=== PATIENT | male | born 1965 | race Caucasian/White ===

== ENCOUNTER 2017-01-29 15:20 | Emergency (ER) | payer MEDICARE, OTHER ==
[~2017-01-29] VITALS: Ht 177.8 cm; Wt 86.2 kg
[~2017-01-29 15:20] MED LIST: BUPR8TAB SL; DIAZ5TAB PO; HYDR-971 PO; LEXAPRO20 MG PO; LISI-334 PO
[2017-01-29 16:09] LABS: BASO # 0.1 x10^3/uL (0.0-0.2); BASO % 1 % (0-3); EOS % 1 % (0-3); HEMATOCRIT 44.5 % (39.0-53.0); HEMOGLOBIN 14.9 g/dL (13.0-17.5); LYMPH % 19 % (24-48); MEAN CORPUSCULAR HEMOGLOBIN 32 pg (25-35); MEAN CORPUSCULAR HGB CONC 34 g/dL (31-37); MEAN CORPUSCULAR VOLUME 94 fL (79-100); MONO % 6 % (0-9); NEUT % 73 % (31-73); PLATELET COUNT 216 x10^3/uL (140-400); RED BLOOD COUNT 4.73 x10^6/uL (4.30-5.70); RED CELL DISTRIBUTION WIDTH 13.4 % (11.5-14.5); WHITE BLOOD COUNT 10.3 x10^3/uL (4.0-11.0)
[2017-01-29] MEDS ORDERED: IPRATRPIUM/ALBUTEROL 0.5/2.5MG 3 ML NEBU. NEB ONE (16:15)
[2017-01-29] MEDS ORDERED: methylPREDNISolone SOD SUCC PF 125 MG/2 ML VIAL. IV ONE (16:15)
[2017-01-29] MEDS ORDERED: ALBUTEROL SULFATE 2.5 MG/3 ML NEBU. NEB ONE ×2 (16:15)
--- NOTE | 2017-01-29 16:16 | RAD ---
Chest radiograph 01/29/2017 at 1604 hours Indication: Dyspnea for 2 days. Comparison: Chest radiograph 07/23/2014. Technique: PA and lateral views of the chest are provided. Findings: Cardiomediastinal silhouette is within normal limits. No pleural effusions, pulmonary vascular congestion or pneumothorax. Few scattered calcified granulomas are noted in the right upper lobe, left upper lobe and left lung base, stable dating back to 07/23/2014. No suspicious nodular opacities are identified. The lungs are clear. Osseous structures are normal. Impression: No acute cardiopulmonary process.
[2017-01-29 16:18] LABS: PROTHROMBIN TIME PATIENT 12.7 SEC (11.7-14.0)
--- NOTE | 2017-01-29 16:26 | EKG ---
[facility] [address] [place] [address] Test Date: 2017-01-29 Test Time: 15:38:44 Pat Name: JACKIE HAYWOOD Department: Room: Gender: M Vamp Creaser: : 1965 Requested By: ELIZABETH MCKINNEY Order Number: [id number] Reading MD: Bev Silva Measurements Intervals [place] Rate: 70 P: 54 WA: 164 QRS: 64 QRSD: 90 T: 71 QT: 368 QTc: 400 Interpretive Statements SINUS RHYTHM NORMAL EKG Electronically Signed On 01-31-2017 16:08:48 CDT by Bev Silva
[2017-01-29 16:30] LABS: CALCIUM 8.6 mg/dL (8.5-10.1); CREATININE 0.7 mg/dL (0.7-1.3); GFR 117.5; POTASSIUM 3.9 mmol/L (3.5-5.1)
[2017-01-29 16:36] LABS: ALBUMIN 2.9 g/dL (3.4-5.0); ALBUMIN/GLOBULIN RATIO 0.8 (1.0-1.7); TOTAL BILIRUBIN 0.3 mg/dL (0.2-1.0); TOTAL PROTEIN 6.7 g/dL (6.4-8.2)
[2017-01-29] MEDS ORDERED: diphenhydrAMINE 50 MG/ML VIAL IVP ONE (17:15)
[2017-01-29] MEDS ORDERED: VENTOLIN HFA18 GM INH (17:45)
[2017-01-29] MEDS ORDERED: PRED50TA PO (17:45)
--- NOTE | 2017-01-29 17:45 | PHYS DOC ---
Past Medical History Past Medical History: COPD, Other Additional Past Medical Histor: "silicus"-from working with cement Past Surgical History: Cholecystectomy, Other Additional Past Surgical Histo: Rt.leg "shattered" in 08/26,hernia Alcohol Use: Occasionally Drug Use: None, Other Adult General Chief Complaint Chief Complaint: SHORTNESS OF BREATH HPI HPI Patient is a 52 year old 52-year-old gentleman who presents here today complaining of shortness of breath for 3 days. Patient does have a history for COPD. Patient denies any history of hypertension diabetes liver longer kidney problems otherwise. Patient has any cancer coronary disease strokes. Patient reports she's had a cholecystectomy and inguinal hernia repair in the past. Patient has no known drug allergies. Patient is not on any home O2. Patient reports she still smokes drinks occasionally but no drugs. Patient reports she' s had no history of DVT or PE in the past. Patient reports his last admission for lung problems approximately 2 years ago. Patient reports uses inhalers at home however he does not have a primary care physician so he ran out of inhalers quite a while ago. Patient reports that he used his sister's inhalers with some improvement. Patient has no PCP here in town. Patient has any fevers shakes chills nausea vomiting or diarrhea. Patient has any abdominal pain or chest pain. Patient reports she's had a clear productive cough which is new for him. Patient's physical exam is significant for diffuse inspiratory and expiratory wheezing. Patient does not appear to be in any acute respiratory distress at this time. Review of systems: Constitutional: Denies fever or chills Eyes: Denies change in visual acuity, redness, or eye pain HENT: Denies nasal congestion or sore throat All other review systems are negative except as documented in the history of present illness portion. Physical exam: Constitutional: Well developed, well nourished, no acute distress, non-toxic appearance. HENT: Normocephalic, atraumatic, bilateral external ears normal, oropharynx moist, no oral exudates, nose normal. Eyes: EOMI, conjunctiva normal, no discharge. Neck: Normal range of motion, no tenderness, supple, no stridor. Cardiovascular:Heart rate regular rhythm Lungs & Thorax: No respiratory distress see above Abdomen: Bowel sounds normal, soft, no masses, no pulsatile masses. Skin: Warm, dry, no erythema, no rash. Back: No tenderness, no CVA tenderness. Extremities: No tenderness, no cyanosis, no clubbing, ROM intact, no edema. Neurologic: Alert and oriented X 3, normal motor function, normal sensory function, no focal deficits noted. Psychologic: Affect normal, judgement normal, mood normal. Chest x-ray: Normal heart no infiltrates or effusions. Chest x-ray is consistent with emphysematous changes. Interpreted by Doctor Paola/ER physician. EKG: Normal sinus rhythm with nonspecific ST-T wave abnormalities. No evidence of ST elevation MS. Assessment and plan 52-year-old gentleman with a COPD exacerbation. Patient is noncompliant with his medications. While in the ER the patient was given 1 DuoNeb and 2 Ventolin treatments with significant improvement in his respiratory status. Patient reports she's and bleeding the ER without any significant discomfort. Patient feels much improved. Patient is requesting to be discharged home as he feels much better now. Patient will be given a prescription for an inhaler and steroids. Patient was instructed to return the ER if any new changes or if his condition worsens. Current Medications Current Medications Current Medications Medications (Trade) Dose Ordered Sig/Michelle Start Time Stop Time Status Last Admin Dose Admin Albuterol Sulfate (Ventolin Neb Soln) 2.5 mg 1X ONCE 01/29/17 16:15 01/29/17 16:16 DC 01/29/17 16:25 2.5 MG Albuterol/ Ipratropium (Duoneb) 3 ml 1X ONCE 01/29/17 16:15 01/29/17 16:16 DC 01/29/17 16:25 3 ML Diphenhydramine HCl (Benadryl) 25 mg 1X ONCE 01/29/17 17:15 01/29/17 17:16 DC 01/29/17 17:14 25 MG Methylprednisolone Sodium Succinate (SOLU-Medrol 125MG VIAL) 125 mg 1X ONCE 01/29/17 16:15 01/29/17 16:16 DC 01/29/17 15:50 125 MG Allergies Allergies Allergies Coded Allergies Type Severity Reaction Last Updated Verified No Known Drug Allergies 10/15/13 No Current Patient Data Vital Signs Vital Signs Date Time Temp Pulse Resp B/P (MAP) Pulse Ox O2 Delivery O2 Flow Rate FiO2 01/29/17 16:59 77 18 128/67 (87) 97 Room Air 8/17/17 16:30 2.0 Lab Values Laboratory Tests Test 01/29/17 15:48 White Blood Count 10.3 x10^3/uL (4.0-11.0) Red Blood Count 4.73 x10^6/uL (4.30-5.70) Hemoglobin 14.9 g/dL (13.0-17.5) Hematocrit 44.5 % (39.0-53.0) Mean Corpuscular Volume 94 fL (79-100) Mean Corpuscular Hemoglobin 32 pg (25-35) Mean Corpuscular Hemoglobin Concent 34 g/dL (31-37) Red Cell Distribution Width 13.4 % (11.5-14.5) Platelet Count 216 x10^3/uL (140-400) Neutrophils (%) (Auto) 73 % (31-73) Lymphocytes (%) (Auto) 19 % (24-48) L Monocytes (%) (Auto) 6 % (0-9) Eosinophils (%) (Auto) 1 % (0-3) Basophils (%) (Auto) 1 % (0-3) Neutrophils # (Auto) 7.5 x10^3uL (1.8-7.7) Lymphocytes # (Auto) 2.0 x10^3/uL (1.0-4.8) Monocytes # (Auto) 0.6 x10^3/uL (0.0-1.1) Eosinophils # (Auto) 0.1 x10^3/uL (0.0-0.7) Basophils # (Auto) 0.1 x10^3/uL (0.0-0.2) Prothrombin Time 12.7 SEC (11.7-14.0) Prothrombin Time INR 1.0 (0.8-1.1) Sodium Level 144 mmol/L (136-145) Potassium Level 3.9 mmol/L (3.5-5.1) Chloride Level 108 mmol/L (98-107) H Carbon Dioxide Level 27 mmol/L (21-32) Anion Gap 9 (6-14) Blood Urea Nitrogen 9 mg/dL (8-26) Creatinine 0.7 mg/dL (0.7-1.3) Estimated GFR (Cockcroft-Gault) 117.5 BUN/Creatinine Ratio 13 (6-20) Glucose Level 109 mg/dL (70-99) H Calcium Level 8.6 mg/dL (8.5-10.1) Total Bilirubin 0.3 mg/dL (0.2-1.0) Aspartate Amino Transferase (AST) 18 U/L (15-37) Alanine Aminotransferase (ALT) 25 U/L (16-63) Alkaline Phosphatase 44 U/L (46-116) L Troponin I Quantitative < 0.017 ng/mL (0.000-0.055) YL-Gid-T-Type Natriuretic Peptide 88 pg/mL (0-124) Total Protein 6.7 g/dL (6.4-8.2) Albumin 2.9 g/dL (3.4-5.0) L Albumin/Globulin Ratio 0.8 (1.0-1.7) L Laboratory Tests 01/29/17 15:48 Laboratory Tests 01/29/17 15:48 EKG EKG [] Radiology/Procedures Radiology/Procedures [] Course & Med Decision Making Course & Med Decision Making Pertinent Labs and Imaging studies reviewed. (See chart for details) [] Dragon Disclaimer Dragon Disclaimer This electronic medical record was generated, in whole or in part, using a voice recognition dictation system. Departure Departure Impression: Primary Impression: COPD exacerbation Disposition: 01 HOME, SELF-CARE Condition: IMPROVED Referrals: NO PCP (PCP) Patient Instructions: Chronic Obstructive Pulmonary Disease Exacerbation Additional Instructions: Thank you for allowing us to participate in your care today. Followup with your primary care physician in 3 days if your symptoms do not improve. Call your Primary Doctor tomorrow and inform them of your visit today. If you do not have a primary care provider you can ask for a list of our primary care providers. Return to the emergency department you have any new or concerning findings. This should be evaluated by the primary care physician and any necessary consulting services for continued management within a few days after discharge. Return to emergency room if you have any new or concerning symptoms including but not limited to fever, chills, nausea, vomiting, intractable pain, any new rashes, chest pain, shortness of air, uncontrolled bleeding, difficulty breathing, and/or vision loss. You may have been prescribed medication that can change in your level of thinking and ability to operate machinery. These medications include hydrocodone and Ativan. Also, Benadryl has been known to do this as well. Be sure to check with your pharmacist and ask if the medications you've prescribed can affect your level of consciousness. I recommend not operating heavy machinery or driving while on medication such as these. Scripts Prednisone (PREDNISONE) 50 Mg Tablet 1 TAB PO DAILY, #5 TAB Prov: ELIZABETH MCKINNEY MD 01/29/17 Albuterol Sulfate (VENTOLIN HFA INHALER) 18 Gm Hfa.aer.ad 2 PUFF INH QID Y for WHEEZING, #1 INHALER 5 Refills Prov: ELIZABETH MCKINNEY MD 01/29/17 ELIZABETH MCKINNEY MD Jan 29, 2017 17:45
[2017-01-29 18:00] VITALS: BP 121/81
== END 2017-01-29 18:20 | disposition home or self-care (01) ==
LOC: ER 15:20
DX: J44.1 Chronic obstructive pulmonary disease with (acute) exacerbation (principal); Z91.14 Patient's other noncompliance with medication regimen; Z90.49 Acquired absence of other specified parts of digestive tract; Z79.899 Other long term (current) drug therapy
CPT/HCPCS: 36415; 71020; 80053; 83880; 84484; 85025; 85610; 93005; 94640; 96374; 96375; 99285; J1200; J2930; J7613; J7620

== ENCOUNTER 2018-07-27 00:19 | Emergency (ER) | payer MEDICARE ==
[2017-03-06 11:00] VITALS: BP 132/84
[~2018-07-27] VITALS: Ht 177.8 cm; Wt 90.7 kg
[~2018-07-27 00:19] MED LIST changes: -ALBUTEROL SULFATE 2.5 MG/3 ML NEBU. NEB ONE
[2018-07-27] MEDS ORDERED: KETOROLAC 30 MG/ML VIAL. IV ONE (01:00)
[2018-07-27] MEDS ORDERED: KETOROLAC 30 MG/ML VIAL. ONE ×2 (01:00→01:25)
[2018-07-27] MEDS ORDERED: IV NORMAL SALINE 1,000 ML BAG ONE (01:00)
[2018-07-27] MEDS ORDERED: IV NORMAL SALINE 1000ML BAG 1,000 ML IV ONE (01:00)
[2018-07-27 06:58] LABS: ALBUMIN 3.2 g/dL (3.4-5.0); CALCIUM 8.1 mg/dL (8.5-10.1); CREATININE 0.8 mg/dL (0.7-1.3); DIRECT BILIRUBIN 0.1 mg/dL (0.0-0.2); GFR 100.4; POTASSIUM 3.8 mmol/L (3.5-5.1); TOTAL BILIRUBIN 0.4 mg/dL (0.2-1.0); TOTAL PROTEIN 6.6 g/dL (6.4-8.2)
[2018-07-27 07:21] LABS: BASO # 0.1 x10^3/uL (0.0-0.2); BASO % 1 % (0-3); EOS # 0.2 x10^3/uL (0.0-0.7); EOS % 2 % (0-3); HEMATOCRIT 42.9 % (39.0-53.0); HEMOGLOBIN 14.1 g/dL (13.0-17.5); LYMPH # 2.1 x10^3/uL (1.0-4.8); LYMPH % 20 % (24-48); MEAN CORPUSCULAR HEMOGLOBIN 31 pg (25-35); MEAN CORPUSCULAR HGB CONC 33 g/dL (31-37); MEAN CORPUSCULAR VOLUME 95 fL (79-100); MONO # 0.8 x10^3/uL (0.0-1.1); MONO % 7 % (0-9); NEUT # 7.4 x10^3uL (1.8-7.7); NEUT % 70 % (31-73); PLATELET COUNT 261 x10^3/uL (140-400); RED BLOOD COUNT 4.53 x10^6/uL (4.30-5.70); RED CELL DISTRIBUTION WIDTH 13.4 % (11.5-14.5); WHITE BLOOD COUNT 10.6 x10^3/uL (4.0-11.0)
[2018-07-27 07:42] LABS: BILIRUBIN,URINE NEGATIVE (NEG); CLARITY,URINE CLEAR; COLOR,URINE YELLOW; NITRITE,URINE NEGATIVE (NEG); PH,URINE 5.5; PROTEIN,URINE NEGATIVE (NEG-TRACE); UROBILINOGEN,URINE 0.2 mg/dL (0.2 mg/dL)
[2018-07-27 07:43] LABS: BACTERIA,URINE 0 /HPF (0-FEW); RBC,URINE OCC /HPF (0-2); SQUAMOUS EPITHELIAL CELL,UR FEW /LPF
--- NOTE | 2018-07-28 15:19 | RAD ---
CT ABDOMEN PELVIS WO CONTRAST Indication: Left lower quadrant abdominal pain. Exposure: One or more of the following individualized dose reduction techniques were utilized for this examination: 1. Automated exposure control 2. Adjustment of the mA and/or kV according to patient size 3. Use of iterative reconstruction technique. Comparison: None are available. Technique: No intravenous or oral contrast per request. FINDINGS: Apparently, a preliminary report of "no acute findings" was provided at the time of the scan. The study was not available for formal interpretation until the time of this report. Lung bases are clear. Dense granuloma in the left lung base. Liver is enlarged, 23.5 cm caudal. Subtle poorly defined hypodense lesion in the posterior upper right lobe, measures about 2.5 cm and measures density of a solid mass. No other definite liver lesions are seen. Spleen and pancreas unremarkable. No adrenal mass. No obvious renal mass. No hydronephrosis or urolithiasis. Gallbladder surgically absent. The aorta is mildly tortuous and calcified but no evidence of aneurysm. No significant lymph node enlargement. Very small hiatal hernia. No bowel obstruction. Moderate retained stool in the colon and rectum. No evidence of acute colitis. The appendix contains pockets of gas, without significant wall thickening or adjacent inflammatory stranding. No ascites or pneumoperitoneum is identified. Small fat-containing hernia in the umbilical region. Degenerative thoracolumbar spondylosis. IMPRESSION: 1. Nonspecific soft tissue mass in the liver. Possibilities include a hemangioma, versus primary or secondary malignancy. Multiphase CT scan of the liver or MRI of the liver could further evaluate. Findings were discussed with Dr. Ross Aparicio in the [facility] emergency room at 3:10 PM on July 28, 2018. 2. Mild retained stool in the colon and rectum. 3. Hepatomegaly. Electronically signed by: Kemal Day MD (07/28/2018 3:16 PM) [facility]
--- NOTE | 2018-07-28 18:47 | VNOTE ---
CALL BACK NOTE CALL BACK Spoke with patient and advised of abnormal CT results and recommended that he follow up with a primary care doctor for further evaluation of his liver mass. Patient requested that a copy of the CT report and a list of providers be mailed to him at [facility] [address] [place] [address]. Patient states that he is unable to get a ride to the hospital to pick one up. LEYLA CHERRY APRN Jul 28, 2018 18:47
== END 2018-07-27 03:30 | disposition home or self-care (01) ==
LOC: ER 00:19
DX: R10.32 Left lower quadrant pain (principal); R11.2 Nausea with vomiting, unspecified; R19.7 Diarrhea, unspecified; J44.9 Chronic obstructive pulmonary disease, unspecified; I10 Essential (primary) hypertension; E78.00 Pure hypercholesterolemia, unspecified
CPT/HCPCS: 36415; 74176; 80048; 80076; 81001; 83690; 85025; 96361; 96374; 99284; J1885; J7030

== ENCOUNTER → 2018-07-27 | Outpatient (CLI) | payer OTHER ==
[2017-03-06 11:00] VITALS: BP 132/84
[~2018-07-27] MED LIST changes: +ALBUTEROL SULFATE 2.5 MG/3 ML NEBU. NEB ONE; +AMOX1TAB11 PO; +ATROVENT HFA12.9 GM IH; +CYCL10TA2 PO; +FLUT1DIS3 IH; +HYDR-3164 PO; -HYDR-971 PO; +PRED-220 PO; +PRED50TA PO; +VENTOLIN HFA18 GM INH
== END | disposition home or self-care (01) ==
LOC: PF 08:11
PROVIDERS: ATTEND Surgery
DX: J44.9 Chronic obstructive pulmonary disease, unspecified (principal); F17.210 Nicotine dependence, cigarettes, uncomplicated
CPT/HCPCS: 94060; 94640; 94729; J7613